=== PATIENT | male | born 1980 | race African-American/Black ===

== ENCOUNTER 2022-02-21 16:30 | Emergency (ER) | payer MEDICAID ==
[~2022-02-21] VITALS: Ht 188 cm; Wt 91.0 kg
[2022-02-21 16:37] VITALS: BP 138/99
== END 2022-02-21 18:15 | disposition home or self-care (01) ==
LOC: ER 16:30
DX: B34.9 Viral infection, unspecified (principal); Z88.9 Allergy status to unspecified drugs, medicaments and biological substances
CPT/HCPCS: 99281